=== PATIENT | female | born 1950 ===

== ENCOUNTER 2017-09-16 21:04 | Emergency (ER) | payer OTHER ==
--- NOTE | 2017-09-16 21:23 | PDOC ---
History of Present Illness - General History Source: Patient Exam Limitations: No Limitations - History of Present Illness Initial Comments: 09/16/17 21:55 Patient is a 67 year old female with no significant past medical history who presents to the ED with complaints of right wrist pain, s/p fall that occured this afternoon. [place] she [place] a step causing her to trip and fall, causing immediate pain. She reports using her right arm to brace herself after fall. Patient reports experiencing left knee and left ankle pain secondary to fall. Denies chest pain, sob. Denies nausea, vomiting. Denies fevers, chills. Denies loss of consciousness, change in vision. Denies any other symptoms. Allergies: Penicillin. Social history: No smoking. No alcohol. No illicit drugs. Surgical history: None PMD: Dr. Alamo. <Jaylon Rodriguez - Last Filed: 09/16/17 21:56> <Demetrio Bradshaw - Last Filed: 09/17/17 06:18> - General Chief Complaint: Injury Stated Complaint: FELL INJURING RIGHT WRIST AND LACERATION TO LOWERI Time Seen by Provider: 09/16/17 21:21 Past History <Jaylon Rodriguez - Last Filed: 09/16/17 21:56> - Past Medical History COPD: No Other medical history: DENIES - Suicide/Smoking/Psychosocial Hx Smoking History: Never smoked Have you smoked in the past 12 months: No Information on smoking cessation initiated: No Hx Alcohol Use: No Drug/Substance Use Hx: No Substance Use Type: Alcohol <Demetrio Bradshaw - Last Filed: 09/17/17 06:18> - Past Medical History Allergies/Adverse Reactions: Allergies Allergy/AdvReac Type Severity Reaction Status Date / Time Penicillins Allergy Verified 09/16/17 21:06 Home Medications: Ambulatory Orders NK [No Known Home Medication] 09/16/17 Review of Systems - Review of Systems Able to Perform ROS?: Yes Comments:: 09/16/17 21:55 GENERAL/CONSTITUTIONAL: No fever or chills. No weakness. HEAD, EYES, EARS, NOSE AND THROAT: No change in vision. No ear pain or discharge. No sore throat. CARDIOVASCULAR: No chest pain or shortness of breath. RESPIRATORY: No cough, wheezing, or hemoptysis. GASTROINTESTINAL: No nausea, vomiting, diarrhea or constipation. GENITOURINARY: No dysuria, frequency, or change in urination. MUSCULOSKELETAL: +Right wrist pain. +Left knee pain. +Left ankle pain. No muscle swelling. No neck or back pain. SKIN: No rash NEUROLOGIC: No headache, vertigo, loss of consciousness, or change in strength/ sensation. ENDOCRINE: No increased thirst. No abnormal weight change. HEMATOLOGIC/LYMPHATIC: No anemia, easy bleeding, or history of blood clots. ALLERGIC/IMMUNOLOGIC: No hives or skin allergy. All Other Systems: Reviewed and Negative <Jaylon Rodriguez - Last Filed: 09/16/17 21:56> *Physical Exam - Vital Signs Last Vital Signs Temp Pulse Resp BP Pulse Ox 98.1 F 76 18 183/95 100 09/16/17 21:09/16/17 21:09/16/17 21:09/16/17 21:09/16/17 21:08 - Physical Exam Comments: 09/16/17 21:55 GENERAL: Awake, alert, and fully oriented, in no acute distress HEAD: +2 cm through and through laceration on interior lower lip. EYES: PERRLA, EOMI, sclera anicteric, conjunctiva clear ENT: Auricles normal inspection, hearing grossly normal, nares patent, oropharynx clear without exudates. Moist mucosa NECK: Normal ROM, supple, no lymphadenopathy, JVD, or masses LUNGS: Breath sounds equal, clear to auscultation bilaterally. No wheezes, and no crackles HEART: Regular rate and rhythm, normal S1 and S2, no murmurs, rubs or gallops ABDOMEN: Soft, nontender, normoactive bowel sounds. No guarding, no rebound. No masses EXTREMITIES: +Right radial side wrist tenderness. Normal range of motion, no edema. No clubbing or cyanosis. No cords, erythema, or tenderness NEUROLOGICAL: Cranial nerves II through XII grossly intact. Normal speech, normal gait SKIN: Warm, Dry, normal turgor, no rashes or lesions noted. <Jaylon Rodriguez - Last Filed: 09/16/17 21:56> - Vital Signs Last Vital Signs Temp Pulse Resp BP Pulse Ox 98.1 F 76 18 183/95 100 09/16/17 21:09/16/17 21:09/16/17 21:08 09/16/17 21:08 09/16/17 21:08 <Demetrio Bradshaw - Last Filed: 09/17/17 06:18> Medical Decision Making - Medical Decision Making 09/17/17 06:14 plain films: all negative, as read by me, referred to radiology for definitive review procedure note: lac repair. through and through lic lap repaired after anesthesia with 1% lido 3cc, irrigation with sterile NS, explored without debris, 3 6-0 nylon on outside and 1 4-0 gut on inside, hemostasis, good wound approximation procedure: cock up splint applied to R wrist with good n/x exam subsequently a/p 1. lac, repaired, signs of infection d/w pt. abx not indicated 2. wrist sprain. cannot definitively r/o scaphoid fx but this seems unlikely. cockup splint, analgesia 3. ankle and knee sprain. nsaids, rest <Demetrio Bradshaw - Last Filed: 09/17/17 06:18> *DC/Admit/Observation/Transfer - Attestations Scribe Attestion: 09/16/17 21:55 Documentation prepared by Jaylon Rodriguez, acting as biomedical repair technician for Demetrio Bradshaw MD/DO. <Jaylon Rodriguez - Last Filed: 09/16/17 21:56> - Discharge Dispostion Admit: No <Demetrio Bradshaw - Last Filed: 09/17/17 06:18> Diagnosis at time of Disposition: Laceration Left wrist sprain Qualifiers: Encounter type: initial encounter Qualified Code(s): S63.502A - Unspecified sprain of left wrist, initial encounter - Discharge Dispostion Disposition: HOME Condition at time of disposition: Stable - Referrals Referrals: Costa Alamo [Primary Care Provider] - - Patient Instructions Printed Discharge Instructions: DI for Wrist Sprain, DI for Laceration Repair - - Simple Additional Instructions: Stitches out Friday morning - Post Discharge Activity Forms/Work/School Notes: Back to Work
[2017-09-16 21:26] VITALS: BP 183/95; PULSE 76; TEMP 98.1; BMI 32.3
[2017-09-16] MEDS ORDERED: LIDOCAINE HCL 1%, 10 MG/ML (20ML VIAL) ONE (23:04)
[2017-09-16] MEDS ORDERED: NAPROXEN 500 MG TABLET (FP) PO ONE (23:47)
[2017-09-16] MEDS ORDERED: NAPROXEN 500 MG TABLET (FP) ONE (23:51)
== END 2017-09-16 23:52 | disposition home or self-care (01) ==
LOC: FER 21:04
PROC: 2W3CX1Z Immobilization of Right Lower Arm using Splint (ICD-10-PCS; principal; 2017-09-16)
DX: S01.511A Laceration without foreign body of lip, initial encounter (principal); S63.501A Unspecified sprain of right wrist, initial encounter; W10.9XXA Fall (on) (from) unspecified stairs and steps, initial encounter; Y93.89 Activity, other specified; Y92.9 Unspecified place or not applicable
CPT/HCPCS: 73110-TC-RT; 73560-TC-LT; 73610-TC-LT; 99281-25